=== PATIENT | female | born 1970 | race Caucasian/White ===

== ENCOUNTER → 2020-07-30 | Day surgery (SDC) | payer BC ==
[~2020-07-30] MED LIST: ALPR0.5T PO; BUPIVACAINE MPF 0.25% 10 ML VIAL. ONE; CELE200C PO; DEXAMETHASONE SOD PHOS 4 MG/ML VIAL. ONE; HYDR-3072 PO; IOHEXOL 300 MG/ML 50 ML VIAL. ONE; LIDOCAINE 1% PF 30 ML VIAL. ONE; MIDAZOLAM HCL PF 2 MG/2 ML VIAL. ONE; OMEP40CA45 PO; ROPI5TAB PO
[2020-07-30 11:34] VITALS: BP 112/75
== END | disposition home or self-care (01) ==
LOC: SURG 08:41
PROVIDERS: ATTEND Anesthesiology
DX: M47.812 Spondylosis without myelopathy or radiculopathy, cervical region (principal); G43.709 Chronic migraine without aura, not intractable, without status migrainosus; Z88.8 Allergy status to other drugs, medicaments and biological substances; Z79.899 Other long term (current) drug therapy; Z88.6 Allergy status to analgesic agent
CPT/HCPCS: 64633; 64634; 99152; 99153; J1100; J2001; J2250; J3010; J3490; Q9967